=== PATIENT | female | born 1990 | race Caucasian/White ===

== ENCOUNTER 2016-05-16 01:48 | Emergency (ER) | payer SELFPAY ==
[2016-05-16 02:25] VITALS: BMI 21.5
[2016-05-16] MEDS ORDERED: Oxycodone/Acetaminophen 5/325 mg Tab PO STA (02:25)
--- NOTE | 2016-05-16 02:28 | ED PDOC ---
HPI: General Adult Time Seen by Provider: 05/16/16 02:08 Chief Complaint (Provider): right arm pain History Per: Patient History/Exam Limitations: no limitations Onset/Duration Of Symptoms: Days Have you had recent travel within the past 21 days to any of the following countries: [place], [place], [place] or [place]?: No Current Symptoms Are (Timing): Still Present Additional Complaint(s): 25yo female with no PMHx presents to the ED with c/o right arm pain since last night mostly to ventral aspect. No numbness, but some tingling to forearm. Pain is worse at night. 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 Took aspirin. Patient also complaining of suprapubic pain x 3 days. No vaginal bleeding, urinary complaints, fever, vomiting. LNMP was 2 months ago. Past Medical History Reviewed: Historical Data, Nursing Documentation, Vital Signs Vital Signs: Last Vital Signs Temp 97.9 F 05/16/16 02:15 Pulse 63 05/16/16 02:15 Resp 18 05/16/16 02:15 BP 134/77 05/16/16 02:15 Pulse Ox 100 05/16/16 02:15 - Medical History PMH: No Chronic Diseases - Surgical History Surgical History: - Family History Family History: States: No Known Family Hx - Home Medications Home Medications: Ambulatory Orders Medication Instructions Recorded Vit37/Iron/Folic Acid 1 tab PO DAILY 07/05/14 [Prenata Chewable Tablet] Docusate Sodium [Colace] 100 mg PO BID #0 sgl 07/07/14 Ibuprofen [Motrin Tab] 600 mg PO Q6 PRN #0 tab 07/07/14 oxyCODONE/Acetaminophen [Percocet 1 tab PO Q6 PRN #0 tab 07/07/14 5/325 mg Tab] - Allergies Allergies/Adverse Reactions: Allergies Allergy/AdvReac Type Severity Reaction Status Date / Time No Known Allergies Allergy Verified 07/04/14 10:00 Review of Systems ROS Statement: Except As Marked, All Systems Reviewed And Found Negative Constitutional: Negative for: Fever Gastrointestinal: Positive for: Abdominal Pain (suprapubic ). Negative for: Vomiting Genitourinary Female: Negative for: Dysuria, Frequency, Incontinence, Hematuria , Vaginal Bleeding Musculoskeletal: Positive for: Arm Pain (right ) Neurological: Positive for: Other (some tingling ). Negative for: Numbness Physical Exam - Reviewed Nursing Documentation Reviewed: Yes Vital Signs Reviewed: Yes - Physical Exam Appears: Positive for: Well, No Acute Distress Head Exam: Positive for: ATRAUMATIC, NORMAL INSPECTION, NORMOCEPHALIC Skin: Positive for: Normal Color, Warm, Dry Eye Exam: Positive for: Normal appearance, EOMI, PERRL ENT: Positive for: Normal ENT Inspection Neck: Positive for: Normal, Painless ROM, Supple Cardiovascular/Chest: Positive for: Regular Rate, Rhythm. Negative for: Murmur , Tachycardia Respiratory: Positive for: Normal Breath Sounds. Negative for: Wheezing, Respiratory Distress Gastrointestinal/Abdominal: Positive for: Normal Exam, Bowel Sounds, Soft. Negative for: Tenderness Back: Positive for: Normal Inspection. Negative for: L CVA Tenderness, R CVA Tenderness Extremity: Positive for: Normal ROM. Negative for: Deformity, Swelling Neurologic/Psych: Positive for: Alert, Oriented. 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 UTI Plan: urine dip/preg Percocet 1 tab PO reassess Scribe Attestation: Documented by Michael Shirley acting as a scribe for Prema Reis MD. Provider Scribe Attestation: All medical record entries made by the Scribe were at my direction and personally dictated by me. I have reviewed the chart and agree that the record accurately reflects my personal performance of the history, physical exam, medical decision making, and the department course for this patient. I have also personally directed, reviewed, and agree with the discharge instructions and disposition. Disposition - Clinical Impression Clinical Impression: Pain of right upper extremity, Paresthesia of right upper extremity - Patient ED Disposition Is Patient to be Admitted: No Doctor Will See Patient In The: Office Counseled Patient/Family Regarding: Studies Performed, Diagnosis, Need For Followup - Disposition Referrals: [facility] [Outside] Disposition: Routine/Home Disposition Time: 02:53 Condition: GOOD Additional Instructions: Rest at work. Take medications as instructed. Follow up with your PCP in 2-3 days. Instructions: Peripheral Neuropathy (ED)
[2016-05-16 02:35] VITALS: BP 134/77; PULSE 63; RESP 18; TEMP 97.9; O2SAT 100
[2016-05-16] MEDS ORDERED: Oxycodone/Acetaminophen 5/325 mg Tab ONE (02:48)
== END 2016-05-16 03:04 | disposition home or self-care (01) ==
LOC: H.ER 01:48
DX: M79.601 Pain in right arm (principal); R20.2 Paresthesia of skin

== ENCOUNTER 2017-04-29 23:56 | Emergency (ER) | payer SELFPAY ==
[2017-04-29 23:56] VITALS: BMI 21.5
[2017-04-30 00:08] VITALS: BP 119/80; PULSE 79; RESP 18; TEMP 98.3; O2SAT 100
[2017-04-30] MEDS ORDERED: Alum-Mag Hydrox-Simethicone Susp (30 mL) PO STA (01:08)
--- NOTE | 2017-04-30 01:20 | ED PDOC ---
HPI: Abdomen Time Seen by Provider: 04/30/17 00:21 Chief Complaint (Nursing): GI Problem Chief Complaint (Provider): Abdominal Pain History Per: Patient History/Exam Limitations: no limitations Onset/Duration Of Symptoms: Days (x3) Location Of Pain/Discomfort: Epigastric Quality Of Discomfort: Burning Associated Symptoms: Nausea Additional Complaint(s): 26 year old female presents to ED with complaints of epigastric pain x3 days and has no past medical history. Notes that the pain travels to her throat and causes a burning sensation after meals. (+) nausea. Denies having similar episodes in the past. PCP: None Past Medical History Reviewed: Historical Data, Nursing Documentation, Vital Signs Vital Signs: Last Vital Signs Temp 98.3 F 04/30/17 00:04 Pulse 79 04/30/17 00:04 Resp 18 04/30/17 00:04 BP 119/80 04/30/17 00:04 Pulse Ox 100 04/30/17 01:28 - Medical History PMH: No Chronic Diseases - Surgical History Surgical History: - Family History Family History: States: Unknown Family Hx - Living Arrangements Living Arrangements: With Family - Home Medications Home Medications: Ambulatory Orders Medication Instructions Recorded Vit37/Iron/Folic Acid 1 tab PO DAILY 07/05/14 [Prenata Chewable Tablet] Docusate Sodium [Colace] 100 mg PO BID #0 sgl 07/07/14 Ibuprofen [Motrin Tab] 600 mg PO Q6 PRN #0 tab 07/07/14 oxyCODONE/Acetaminophen [Percocet 1 tab PO Q6 PRN #0 tab 07/07/14 5/325 mg Tab] oxyCODONE/Acetaminophen [Percocet 1 ea PO Q6 PRN #8 tab 05/16/16 5/325 mg Tab] Famotidine [Pepcid] 20 mg PO BID #28 tab 04/30/17 - Allergies Allergies/Adverse Reactions: Allergies Allergy/AdvReac Type Severity Reaction Status Date / Time No Known Allergies Allergy Verified 07/04/14 10:00 Review of Systems ROS Statement: Except As Marked, All Systems Reviewed And Found Negative Gastrointestinal: Positive for: Nausea, Abdominal Pain Physical Exam - Reviewed Nursing Documentation Reviewed: Yes Vital Signs Reviewed: Yes - Physical Exam Appears: Positive for: Non-toxic, No Acute Distress Skin: Positive for: Normal Color, Warm, Dry Eye Exam: Positive for: Normal appearance ENT: Positive for: Normal ENT Inspection Respiratory: Negative for: Respiratory Distress Gastrointestinal/Abdominal: Positive for: Soft, Tenderness (epigastric tenderness). Negative for: Normal Exam Neurologic/Psych: Positive for: Alert, Oriented - Laboratory Results Result Diagrams: 04/30/17 01:22 04/30/17 01:22 - ECG O2 Sat by Pulse Oximetry: 100 (RA) Pulse Ox Interpretation: Normal Medical Decision Making Medical Decision Makin Initial impression: gastritis, gall bladder disease Initial plan: * Labs * Lipase * UPreg * UDip * Lidocaine 2% viscous 15mL PO * Maalox Plus 30mL PO * Pepcid 20mg IV * Zofran Inj 4mg IV * Re-eval Scribe Attestation: Documented by Emily Hernandez acting as a scribe for Anushka Hernandez PA-C. MD Scribe Attestation: All medical record entries made by the Scribe were at my direction and personally dictated by me. I have reviewed the chart and agree that the record accurately reflects my personal performance of the history, physical exam, medical decision making, and the department course for this patient. I have also personally directed, reviewed, and agree with the discharge instructions and disposition. Disposition - Clinical Impression Clinical Impression: Epigastric abdominal pain - Patient ED Disposition Is Patient to be Admitted: No Counseled Patient/Family Regarding: Diagnosis, Need For Followup - Disposition Disposition: Routine/Home Disposition Time: 03:45 Condition: GOOD Prescriptions: Famotidine [Pepcid] 20 mg PO BID #28 tab Instructions: Gastritis Forms: [facility] (Danish) Print Language: [place] CITIZ[place]
[2017-04-30] MEDS ORDERED: Alum-Mag Hydrox-Simethicone Susp (30 mL) ONE (01:25)
[2017-04-30 01:26] LABS: BASO # 0.1 K/uL (0.0-0.2); BASO % 0.8 % (0.0-2.0); EOS # 0.2 K/uL (0.0-0.7); EOS % 2.2 % (0.0-4.0); HEMOGLOBIN 15.5 g/dL (12.0-16.0); LYMPH # 2.5 K/uL (1.0-4.3); LYMPH % 22.8 % (20.0-40.0); MEAN CELL VOLUME 91.6 fl (81.0-99.0); MEAN CORPUSCULAR HEMOGLOBIN 31.1 pg (27.0-31.0); MEAN PLATELET VOLUME 9.1 fl (7.2-11.7); NEUT # 7.1 K/uL (1.8-7.0); NEUT % 65.2 % (50.0-75.0); NRBC % 0.1 % (0.0-0.0); RBC 4.97 Mil/uL (3.80-5.20); RED CELL DISTRIBUTION WIDTH 12.7 % (11.5-14.5); WHITE BLOOD COUNT 10.9 K/uL (4.8-10.8)
[2017-04-30 01:44] LABS: ALB/GLOB RATIO 1.1 (1.0-2.1); ALBUMIN 4.4 g/dL (3.5-5.0); ALT/SGPT 39 U/L (9-52); AST/SGOT 25 U/L (14-36); BLOOD UREA NITROGEN 14 mg/dl (7-17); CALCIUM 9.6 mg/dL (8.4-10.2); GFR AFRICAN-AMERICAN > 60; GFR NON-AFRICAN AMERICAN > 60; LIPASE 156 U/L (23-300)
[2017-04-30] MEDS ORDERED: Sodium Chloride 0.9% 1,000 ML IV STA (03:15)
== END 2017-04-30 03:57 | disposition home or self-care (01) ==
LOC: H.ER 23:56
DX: R10.13 Epigastric pain (principal)
CPT/HCPCS: 80053; 83690; 85025; 99283; J2405; J7040

== ENCOUNTER 2017-08-13 09:36 | Emergency (ER) | payer SELFPAY ==
[2017-08-13 09:41] VITALS: BMI 33.8
[2017-08-13 09:43] VITALS: BP 109/73; PULSE 64; RESP 17; TEMP 97.7; O2SAT 99
--- NOTE | 2017-08-13 10:41 | ED PDOC ---
HPI: Female Pain Time Seen by Provider: 08/13/17 10:08 Chief Complaint (Nursing): Female Genitourinary Chief Complaint (Provider): Suprapubic pain, burning on urination History Per: Patient History/Exam Limitations: no limitations Onset/Duration Of Symptoms: Days Current Symptoms Are (Timing): Still Present Severity: Moderate Quality Of Discomfort: Dull Additional Complaint(s): 26 yo female presents with 4 days of burning on urination and suprapubic pain which she describes as crampy. No fever. No N/V. Pt denies similar in the past. Pt has US tomorrow. Past Medical History Reviewed: Historical Data, Nursing Documentation, Vital Signs Vital Signs: Last Vital Signs Temp 97.7 F 08/13/17 09:41 Pulse 64 08/13/17 09:41 Resp 17 08/13/17 09:41 BP 109/73 08/13/17 09:41 Pulse Ox 99 08/13/17 09:41 - Medical History PMH: No Chronic Diseases - Surgical History Surgical History: - Family History Family History: States: Unknown Family Hx - Living Arrangements Living Arrangements: With Family - Social History Current smoker - smoking cessation education provided: No - Home Medications Home Medications: Ambulatory Orders Medication Instructions Recorded Vit37/Iron/Folic Acid 1 tab PO DAILY 07/05/14 [Prenata Chewable Tablet] Docusate Sodium [Colace] 100 mg PO BID #0 sgl 07/07/14 Ibuprofen [Motrin Tab] 600 mg PO Q6 PRN #0 tab 07/07/14 oxyCODONE/Acetaminophen [Percocet 1 tab PO Q6 PRN #0 tab 07/07/14 5/325 mg Tab] oxyCODONE/Acetaminophen [Percocet 1 ea PO Q6 PRN #8 tab 05/16/16 5/325 mg Tab] Famotidine [Pepcid] 20 mg PO BID #28 tab 04/30/17 Ciprofloxacin [Cipro] 500 mg PO BID #10 tab 08/13/17 - Allergies Allergies/Adverse Reactions: Allergies Allergy/AdvReac Type Severity Reaction Status Date / Time No Known Allergies Allergy Verified 08/13/17 09:55 Review of Systems ROS Statement: Except As Marked, All Systems Reviewed And Found Negative Constitutional: Negative for: Fever, Chills Genitourinary Female: Positive for: Dysuria, Pelvic Pain. Negative for: Vaginal Bleeding Physical Exam - Reviewed Nursing Documentation Reviewed: Yes Vital Signs Reviewed: Yes - Physical Exam Appears: Positive for: Well, Non-toxic, No Acute Distress Head Exam: Positive for: ATRAUMATIC, NORMAL INSPECTION, NORMOCEPHALIC Skin: Positive for: Normal Color, Warm, DRY Eye Exam: Positive for: Normal appearance ENT: Positive for: Normal ENT Inspection Neck: Positive for: Normal, Painless ROM Cardiovascular/Chest: Positive for: Regular Rate, Rhythm Respiratory: Positive for: Normal Breath Sounds. Negative for: Accessory Muscle Use, Respiratory Distress Gastrointestinal/Abdominal: Positive for: Normal Exam, Soft Back: Positive for: Normal Inspection Extremity: Positive for: Normal ROM Neurologic/Psych: Positive for: Alert, Oriented - ECG O2 Sat by Pulse Oximetry: 99 Disposition - Clinical Impression Clinical Impression: UTI (urinary tract infection) - Patient ED Disposition Is Patient to be Admitted: No Counseled Patient/Family Regarding: Diagnosis, Need For Followup, Rx Given - Disposition Referrals: [facility] [Outside] Disposition: Routine/Home Disposition Time: 11:26 Condition: STABLE Prescriptions: Ciprofloxacin [Cipro] 500 mg PO BID #10 tab Instructions: Urinary Tract Infection, Adult (DC) Forms: [facility] (Mongolian) Print Language: SOUTH [place]UDAN[place]
[2017-08-13 11:37] LABS: SQUAMOUS EPITHIAL 8 /hpf (0-5); URINE BILIRUBIN NEGATIVE (NEGATIVE); URINE BLOOD LARGE (NEGATIVE); URINE CLARITY TURBID (Clear); URINE COLOR YELLOW (YELLOW); URINE GLUCOSE (UA) NEG (Normal); URINE LEUKOCYTE ESTERASE LARGE Leu/uL (Negative); URINE PROTEIN 30 mg/dL (NEGATIVE); URINE UROBILINOGEN 0.2-1.0 mg/dL (0.2-1.0)
== END 2017-08-13 12:00 | disposition home or self-care (01) ==
LOC: H.ER 09:36
DX: N39.0 Urinary tract infection, site not specified (principal)